=== PATIENT | female | born 1950 | race Two or more races ===

== ENCOUNTER → 2022-10-14 10:11 | Outpatient (BNVA) | payer MEDICARE, SELFPAY | PROVIDERS: Visit Provider Nurse Practitioner Family | DX: R51.9 Headache, unspecified (principal); F09 Unspecified mental disorder due to known physiological condition; R42 Dizziness and giddiness; G47.19 Other hypersomnia; R06.83 Snoring | CPT/HCPCS: 99202 ==

== ENCOUNTER → 2022-11-23 12:19 | Outpatient (REF) | payer MEDICARE, SELFPAY ==
[2022-11-23 12:41] LABS: MANUAL DIFF FLAG NO
[2022-11-23 13:16] LABS: Basophils Percent Auto 0.7 % (0-2); Eosinophils Absolute Auto 0.1 X10*3/uL (0.0-0.4); Eosinophils Percent Auto 1.1 % (0-4); Hematocrit 37.4 % (37.0-47.0); Hemoglobin 11.8 g/dl (12.0-16.0); Imm Gran Abs Auto 0.01 X10*3/uL (0.00-0.03); Imm Gran Pct Auto 0.2 % (0.0-0.4); Lymphocytes Percent Auto 44.7 % (20-40); Mean Corpuscular HGB Conc 31.6 g/dl (31.0-35.0); Mean Corpuscular Hemoglobin 29.4 pg (27.0-33.0); Mean Platelet Volume 12.1 fL (9.4-12.3); Monocytes Absolute Auto 0.4 X10*3/uL (0.1-1.2); Monocytes Percent Auto 8.6 % (2-11); Neutrophils Percent Auto 44.7 % (45-73); Platelet Count 167 X10*3/uL (160-400); Red Blood Count 4.02 X10*6/uL (4.20-5.50); Red Cell Distribution Width 13.2 % (11.0-16.0); White Blood Count 4.4 X10*3/uL (4.8-10.8)
[2022-11-23 13:56] LABS: Alanine Aminotransferase 11 U/L (0-31); Albumin Level 4.1 g/dL (3.5-5.0); Alkaline Phosphatase 108 U/L (39-117); Anion Gap 13 (12-20); Aspartate Amino Transferase 20 U/L (5-31); Bilirubin Total 0.4 mg/dL (0.0-1.0); Blood Urea Nitrogen 12 mg/dL (9-16); Calcium 9.2 mg/dL (8.4-10.2); Carbon Dioxide 27 mmol/L (22-29); Chloride 105 mmol/L (96-108); Estimated Glomerular Filt Rate > 60; Glucose Random 80 mg/dL (60-115); Potassium 4.9 mmol/L (3.3-5.1); Sodium 140 mmol/L (135-145); Total Protein 6.5 g/dL (6.5-8.0)
[2022-11-23 14:13] LABS: Erythrocyte Sedimentation Rate 11 MM/HR (0-20)
[2022-11-23 14:19] LABS: Folate > 20.0 ng/mL (> or = 4.0); TSH reflex Free T4 1.59 uIU/mL (0.32-4.0); Vitamin B12 474 pg/mL (200-900)
[2022-11-24 03:31] LABS: Syphilis Screen Nonreactive (Nonreactive)
[2022-11-24 07:14] LABS: HIV AB/AG Nonreactive (Nonreactive)
== END ==
LOC: HO.SL 12:19
PROVIDERS: Visit Provider Nurse Practitioner Family
DX: R42 Dizziness and giddiness (principal); R51.9 Headache, unspecified; F09 Unspecified mental disorder due to known physiological condition
CPT/HCPCS: 36415; 80053; 82607; 82746; 84443; 85025; 85652; 86780; 87389

== ENCOUNTER 2022-11-23 12:49 | Emergency (ER) | payer MEDICARE, SELFPAY ==
[2022-11-23 13:03] VITALS: BP 156/77; PULSE 72; RESP 20; TEMP 36.7; O2SAT 99; BMI 25.1
--- NOTE | 2022-11-23 13:08 | PC.NURSE ---
Addendum entered by Virgen Garcia RN 11/23/22 13:09: seizure precautions placed. Original Note: patient currently a&ox3, vss, pt breathing wnl, pt denies pain/discomfort, pt states she had a panic attack related to her lab draw-states she doesnt like getting blood drawn, call galvan within reach, will continue to monitor.
--- NOTE | 2022-11-23 13:35 | ED.GENADULT ---
HPI - General Adult General Chief complaint: Anxiety Stated complaint: Syncope Time Seen by Provider: 11/23/22 13:26 Source: patient, family and old records reviewed History of Present Illness HPI narrative: Pt had syncopal episode while getting blood drawn. States I had a panic attack Patient has a long history of panic disorder. typically takes lorazepam. Denies all symptoms now. Has also had syncope with blood draw in the past. No history of dysrhythmia No Chest Pain No Palpitations. Related Data Home Medications Medication Instructions Recorded Confirmed acetaminophen 650 mg 650 mg PO TID 10/12/22 10/14/22 tablet,extended release albuterol sulfate 90 mcg/actuation 0 mcg inhalation 10/12/22 10/14/22 aerosol inhaler carboxymethylcellulose sodium 0.5 0 drp ophthalmic (eye) 10/12/22 10/14/22 % eye drops diclofenac sodium 1 % topical gel g topical BID 10/12/22 10/14/22 fluticasone propionate 50 spray intranasal 10/12/22 10/14/22 mcg/actuation nasal spray,suspension latanoprost 0.005 % eye drops 0 drp ophthalmic (eye) 10/12/22 mirtazapine 15 mg tablet 15 mg PO BEDTIME 10/12/22 10/14/22 quetiapine 25 mg tablet 0 mg PO 10/12/22 10/14/22 escitalopram oxalate 10 mg tablet 10 mg PO DAILY 10/14/22 10/14/22 lorazepam 0.5 mg tablet 0.5 mg PO DAILY PRN 10/14/22 10/14/22 Allergies Allergy/AdvReac Type Severity Reaction Status Date / Time Penicillins Allergy Unknown Unknown Verified 11/23/22 13:03 iv contrast dye Allergy Unknown Unknown Uncoded 10/14/22 10:26 Review of Systems Constitutional: Comments: No Fever Chills Cardiovascular: Comments: No CP Respiratory: Comments: No Dyspnea Gastrointestinal: Comments: No NVD Musculoskeletal: Comments: No Calf TTP Neurologic: Comments: Non Focal. Ambulates without difficulty [facility] Past Medical History Medical History (Updated 11/23/22 @ 13:36 by Allen Brandt MD) Allergic rhinitis Anemia Anxiety Bipolar II disorder Depression Dysphagia GERD (gastroesophageal reflux disease) Glaucoma HLD (hyperlipidemia) HTN (hypertension) Lumbar spondylosis Surgical History H/O: hysterectomy History of back surgery Status post lumbar spinal fusion Social History Social History Alcohol intake: never Patient Tobacco Use Status: Never used Tobacco Advance Directives: No Advance Directives Information Provided: Yes Physical Exam ED Vital Signs: Vital Signs - 24 hr 11/23/22 13:03 Temperature 98.1 F Pulse Rate 72 Respiratory Rate 20 Blood Pressure 156/77 H Pulse Oximetry 99 Oxygen Delivery Method Room Air BMI result Body Mass Index 25.1 Const Other: Alert, No Acute distress. Ambulates without difficulty Discharge Plan Discharge Clinical Impression: Panic disorder, Syncope Patient Disposition: Home, Self-Care Instructions: Syncope (ED), Panic Disorder (ED) Additional Instructions: Return if worse or you have any concerns. Continue current medications Prescriptions: No Action diclofenac sodium 1 % gel topical BID fluticasone propionate 50 mcg/actuation spray,suspension intranasal acetaminophen 650 mg tablet extended release 650 mg PO TID mirtazapine 15 mg tablet 15 mg PO BEDTIME albuterol sulfate 90 mcg/actuation HFA aerosol inhaler 0 mcg inhalation quetiapine 25 mg tablet 0 mg PO carboxymethylcellulose sodium 0.5 % drops 0 drp ophthalmic (eye) latanoprost 0.005 % drops 0 drp ophthalmic (eye) lorazepam 0.5 mg tablet 0.5 mg PO DAILY PRN escitalopram oxalate 10 mg tablet 10 mg PO DAILY
== END 2022-11-23 13:43 | disposition home or self-care (01) ==
PROVIDERS: Emergency Provider Emergency Medicine
DX: F41.0 Panic disorder [episodic paroxysmal anxiety] (principal); R55 Syncope and collapse; F40.230 Fear of blood
CPT/HCPCS: 99282; 99283